=== PATIENT | male | born 1960 | race Caucasian/White ===

== ENCOUNTER 2022-12-29 19:11 | Emergency (ER) | payer SELFPAY ==
[~2022-12-29] VITALS: Ht 180.3 cm; Wt 55.3 kg
--- NOTE | 2022-12-29 19:18 | ED General ---
General Chief Complaint: General Problems/Pain Stated Complaint: BACK PAIN/TARRY STOOL History of Present Illness Date Seen by Provider: Dec 29, 2022 Time Seen by Provider: 19:17 Initial Comments 62-year-old male with PMH of chronic back pain and fused discs, is brought in by EMS for vague and inconsistent complaints. EMS was called for black tarry stools by patient's son, who is not in the ER. Patient denies dark tarry stools. Patient is only complaining of back pain and abdominal discomfort. EMS states that patient appeared confused to them. In the ER patient is alert oriented x3 and is able to answer all questions and commands, but he is not a great historian and is hard of hearing. Patient also states that he is mildly lightheaded, and has only had a cup of coffee and a handful of crackers all day. Patient states that he smokes marijuana. Denies alcohol use, fever or chills, cough, chest pain, palpitations, dysuria, headache, confusion, blurry vision, diarrhea, constipation, nausea and vomiting. Allergies and Home Medications Allergies Coded Allergies: No Known Drug Allergies (Unverified , 12/29/22) Patient Home Medication List Home Medication List Reviewed: Yes Review of Systems Review of Systems Constitutional: malaise EENTM: no symptoms reported Respiratory: no symptoms reported Cardiovascular: no symptoms reported Gastrointestinal: see HPI, loss of appetite Genitourinary: no symptoms reported Musculoskeletal: see HPI, back pain Skin: no symptoms reported Psychiatric/Neurological: No Symptoms Reported Hematologic/Lymphatic: No Symptoms Reported Immunological/Allergic: no symptoms reported Physical Exam Vital Signs Vital Signs - First Documented 12/29/22 19:12 Temp 36.5 Pulse 100 Resp 18 B/P (MAP) 179/98 (125) Pulse Ox 98 O2 Delivery Room Air Capillary Refill : Height, Weight, BMI Height: '" Weight: lbs. oz. kg; BMI Method: General Appearance: No Apparent Distress, WD/WN, Thin HEENT: PERRL/EOMI Neck: Full Range of Motion, Normal Inspection, Non Tender Respiratory: Chest Non Tender, Lungs Clear, Normal Breath Sounds Cardiovascular: Regular Rate, Rhythm, No Edema Gastrointestinal: Normal Bowel Sounds, Distended, Tenderness (Diffuse and generalized) Rectal: Other (Patient is wearing a diaper, stool is not black, early prolapse) Back: Normal Inspection, No CVA Tenderness, Vertebral Tenderness (The lumbosacral area) Extremity: Normal Range of Motion Neurologic/Psychiatric: Alert, Oriented x3, No Motor/Sensory Deficits, Other (Bilateral straight leg test negative, no saddle anesthesia.) Skin: Normal Color, Other (Tenting of skin and dry mucous membranes) Focused Exam Lactate Level 12/29/22 19:25: Lactic Acid Level 0.90 Lactic Acid Level Laboratory Tests Test 12/29/22 19:25 Lactic Acid Level 0.90 MMOL/L (0.50-2.00) Progress/Results/Core Measures Suspected Sepsis SIRS Temperature: Pulse: Respiratory Rate: Laboratory Tests 12/29/22 19:20: White Blood Count 19.4H Blood Pressure / Mean: 12/29/22 19:25: Lactic Acid Level 0.90 Laboratory Tests 12/29/22 19:20: Creatinine 17.33H, Platelet Count 534H, Total Bilirubin 0.3 Results/Orders Lab Results Laboratory Tests Test 12/29/22 19:20 12/29/22 19:25 12/29/22 20:04 Range/Units White Blood Count 19.4 H 4.3-11.0 10^3/uL Red Blood Count 3.40 L 4.30-5.52 10^6/uL Hemoglobin 10.8 L 13.3-17.7 g/dL Hematocrit 30 L 40-54 % Mean Corpuscular Volume 89 80-99 fL Mean Corpuscular Hemoglobin 32 25-34 pg Mean Corpuscular Hemoglobin Concent 36 32-36 g/dL Red Cell Distribution Width 12.9 10.0-14.5 % Platelet Count 534 H 130-400 10^3/uL Mean Platelet Volume 9.8 9.0-12.2 fL Immature Granulocyte % (Auto) 1 % Neutrophils (%) (Auto) 91 H 42-75 % Lymphocytes (%) (Auto) 2 L 12-44 % Monocytes (%) (Auto) 6 0-12 % Eosinophils (%) (Auto) 0 0-10 % Basophils (%) (Auto) 0 0-10 % Neutrophils # (Auto) 17.6 H 1.8-7.8 10^3/uL Lymphocytes # (Auto) 0.4 L 1.0-4.0 10^3/uL Monocytes # (Auto) 1.2 H 0.0-1.0 10^3/uL Eosinophils # (Auto) 0.0 0.0-0.3 10^3/uL Basophils # (Auto) 0.0 0.0-0.1 10^3/uL Immature Granulocyte # (Auto) 0.1 0.0-0.1 10^3/uL Neutrophils % (Manual) 91 % Lymphocytes % (Manual) 4 % Monocytes % (Manual) 5 % Sodium Level 126 L 135-145 MMOL/L Potassium Level 6.7 *H 3.6-5.0 MMOL/L Chloride Level 85 L 98-107 MMOL/L Carbon Dioxide Level 12 L 21-32 MMOL/L Anion Gap 29 H 5-14 MMOL/L Blood Urea Nitrogen 200 *H 7-18 MG/DL Creatinine 17.33 H 0.60-1.30 MG/DL Estimat Glomerular Filtration Rate 3 BUN/Creatinine Ratio 12 Glucose Level 138 H 70-105 MG/DL Calcium Level 9.3 8.5-10.1 MG/DL Corrected Calcium 9.8 8.5-10.1 MG/DL Magnesium Level 2.8 H 1.6-2.4 MG/DL Total Bilirubin 0.3 0.1-1.0 MG/DL Aspartate Amino Transf (AST/SGOT) 5 5-34 U/L Alanine Aminotransferase (ALT/SGPT) < 5 0-55 U/L Alkaline Phosphatase 80 40-136 U/L Troponin I < 0.30 <0.30 NG/ML Pro-B-Type Natriuretic Peptide 521.4 H <125.0 PG/ML Total Protein 7.2 6.4-8.2 GM/DL Albumin 3.4 3.2-4.5 GM/DL Serum Alcohol < 10 <10 MG/DL Lactic Acid Level 0.90 0.50-2.00 MMOL/L Urine Color YELLOW Urine Clarity CLOUDY Urine pH 5.5 5-9 Urine Specific Dyke 1.020 1.016-1.022 Urine Protein NEGATIVE NEGATIVE Urine Glucose (UA) NEGATIVE NEGATIVE Urine Ketones TRACE H NEGATIVE Urine Nitrite NEGATIVE NEGATIVE Urine Bilirubin NEGATIVE NEGATIVE Urine Urobilinogen 0.2 < = 1.0 MG/DL Urine Leukocyte Esterase NEGATIVE NEGATIVE Urine RBC (Auto) 3+ H NEGATIVE Urine RBC 5-10 H /HPF Urine WBC 5-10 H /HPF Urine Crystals NONE /LPF Urine Bacteria TRACE /HPF Urine Casts PRESENT /LPF Urine Coarse Granular Casts 2-5 H /LPF Urine Mucus SMALL H /LPF Urine Other SPERM PRESENT /HPF Urine Culture Indicated YES Urine Opiates Screen NEGATIVE NEGATIVE Urine Oxycodone Screen NEGATIVE NEGATIVE Urine Methadone Screen NEGATIVE NEGATIVE Urine Propoxyphene Screen NEGATIVE NEGATIVE Urine Barbiturates Screen NEGATIVE NEGATIVE Ur Tricyclic Antidepressants Screen NEGATIVE NEGATIVE Urine Phencyclidine Screen NEGATIVE NEGATIVE Urine Amphetamines Screen NEGATIVE NEGATIVE Urine Methamphetamines Screen NEGATIVE NEGATIVE Urine Benzodiazepines Screen NEGATIVE NEGATIVE Urine Cocaine Screen NEGATIVE NEGATIVE Urine Cannabinoids Screen NEGATIVE NEGATIVE My Orders Orders - SHYANNE LOBO MD Alcohol (12/29/22 19:18) Cbc With Automated Diff (12/29/22 19:18) Comprehensive Metabolic Panel (12/29/22 19:18) Drug Screen Stat (Urine) (12/29/22 19:18) Lactic Acid Analyzer (12/29/22 19:18) Magnesium (12/29/22 19:18) Ua Culture If Indicated (12/29/22 19:18) Troponin I Fs (12/29/22 19:18) Occult Blood Stool (12/29/22 19:21) Fecal Occult Bedside (12/29/22 19:21) Manual Differential (12/29/22 17:20) Chest 1 View Ap/Pa Only (12/29/22 19:34) Ct Head Wo (12/29/22 19:34) Ed Iv/Invasive Line Start (12/29/22 19:35) Blood Culture (12/29/22 19:37) Iohexol Injection (Omnipaque 350 Mg/Ml 1 (12/29/22 19:45) Ns (Ivpb) (Sodium Chloride 0.9% Ivpb Bag (12/29/22 19:45) Received Contrast (Hold Metformin- Contr (12/29/22 19:45) Ct Abdomen/Pelvis Wo (12/29/22 19:34) Probnp Fs (12/29/22 19:50) Ekg Tracing (12/29/22 19:51) Ed Iv/Invasive Line Start (12/29/22 19:54) Ns Iv 500 Ml (Sodium Chloride 0.9%) (12/29/22 19:54) Catheter(Urinary) Insert & Ass 03,15 (12/29/22 20:00) Lidocaine 2% (Urojet) (Xylocaine Urojet) (12/29/22 20:00) Drug Screen Stat (Urine) (12/29/22 20:04) Urine Culture (12/29/22 20:04) Ceftriaxone 1 Gm Pre-Mix (Rocephin 1 Gm (12/29/22 20:31) Vital Signs/I&O 12/29/22 19:12 Temp 36.5 Pulse 100 Resp 18 B/P (MAP) 179/98 (125) Pulse Ox 98 O2 Delivery Room Air Capillary Refill : Progress Note : Progress Note 1. INTERMITTENT AMS & DEHYDRATION: - CT HEAD: no acute findings - s. ETOH: negative - UDS negative - UA is positive for ketones, RBCs and WBCs. Urine taken after Owens insertion - NS IVF 500ml given over 2 hrs -Dehydration evidenced by tenting of skin and dry mucous membranes, and ketones in urine 2. NEWLY DIAGNOSED COLON CANCER WITH METS/ BLADDER MASS/ LOWER GI BLEED - CXR: no acute findings, small left pleural effusion - CT ABDOMEN: Severe bilateral hydroureteronephrosis. The dilation extends to the urinary bladder. The bladder wall is thickened with hyper trabeculation. There is high attenuating soft tissue within the urinary bladder consistent with blood clot, possibly with an underlying soft tissue mass. Focal wall thickening of the descending colon is indeterminate but may represent a colon malignancy. Large amount of ascites with omental stranding. Findings may represent underlying peritoneal metastatic disease. Retroperitoneal lymphadenopathy concerning for metastatic disease. Indeterminate liver lesion and indeterminate osseus lesions. - FOB:positive - CBC WBC is elevated to 19.4 with a left shift - BNP is 521 - Protonix bolus 40 iv given in ER - Ceftriaxone 1gm iv STAT 3. SEVERE HYPERKALEMIA/ HYPONATREMIA & CHRONIC RENAL INURY/ FAILURE: BILATERAL HYDROURETERONEPHROSIS - s. creatinine is 17.33 - s. potassium us 6.74 - Troponin normal - Not able to order oral binders on EMR, but nurse able to pull kayexalate 15gm, which was given to pt. - EKG: non-ischemic, no acute changes - ABG: pH is 7.34, HCO3 is 11.3: 1 amp of sodium bicarb given in ER - Pt not aware of his health problems -Creatinine elevation appears to be chronic, and likely cause of potassium being elevated, which is also likely chronic. -Patient will need assessment for dialysis. Will transfer to [facility]. Discussed with ICU consult, Dr Pedraza and accepted for transfer. - Calcium gluconate 1gm iv STAT & Intravenous insulin 5units with 100ml of D50 given - fingerstick checks Diagnostic Imaging Diagonstic Imaging: Xray, CT Plain Films/CT/US/NM/MRI: chest, abdomen, pelvis, head Comments [facility]. [place], [place] NAME: JESSE WEATHERS [facility] REC#: [id number] PT STATUS: REG ER : 1960 PHYSICIAN: SHYANNE LOBO MD ADMIT DATE: 12/29/22/ER FS Draft Date of Exam:12/29/22 CT ABDOMEN/PELVIS WO EXAMINATION: CT abdomen and pelvis without contrast. TECHNIQUE: Multiple contiguous axial images were obtained through the abdomen and pelvis without the use of intravenous contrast. All CT scans use one or more of the following dose optimizing techniques: automated exposure control, MA and/or KvP adjustment based on patient size and exam type or iterative reconstruction. HISTORY: Abdominal distention and back pain. COMPARISON: None available. FINDINGS: Limited views of the lower thorax show small left pleural effusion and overlying atelectasis. There is an indeterminate 1.2 cm right liver lesion. There is no biliary ductal dilation. Gallbladder is normal. Pancreas is normal. Spleen is normal. Adrenal glands are normal. The kidneys are normal. There is severe bilateral hydroureteronephrosis. Bladder wall is thickened with hyper trabeculation. There is soft tissue within the bladder. Prostate gland is enlarged. There is wall thickening of the descending colon. No bowel dilation. There is a large amount of ascites. There is omental stranding. A small hiatal hernia is present. There is retroperitoneal lymphadenopathy. The nodes are difficult to separate from the adjacent vasculature but measure up to 1.3 cm at a minimum. A right external iliac node measures 1.5 cm. Right common iliac lymphadenopathy is present. Aorta is normal in caliber without aneurysm. There is an indeterminate sclerotic lesion in the left ilium. There is a lytic lesion versus Schmorl's node in the superior portion of L1. There is an age-indeterminate compression fracture of T9. IMPRESSION: 1. Severe bilateral hydroureteronephrosis. The dilation extends to the urinary bladder. The bladder wall is thickened with hyper trabeculation. There is high attenuating soft tissue within the urinary bladder consistent with blood clot, possibly with an underlying soft tissue mass. 2. Focal wall thickening of the descending colon is indeterminate but may represent a colon malignancy. 3. Large amount of ascites with omental stranding. Findings may represent underlying peritoneal metastatic disease. 4. Retroperitoneal lymphadenopathy concerning for metastatic disease. 5. Indeterminate liver lesion and indeterminate osseus lesions. Dictated on workstation # [id number] Dict: 12/29/222024 Trans: 12/29/222037 PJE [id number] Interpreted by: DIANE MEEK MD Electronically signed by: [place]ILO [place], [place] NAME: JESSE WEATHERS [facility] REC#: [id number] PT STATUS: REG ER : 1960 PHYSICIAN: SHYANNE LOBO MD ADMIT DATE: 12/29/22/ER FS Draft Date of Exam:12/29/22 CT HEAD WO EXAMINATION: CT head without contrast. TECHNIQUE: Multiple contiguous axial images were obtained through the brain without the use of intravenous contrast. All CT scans use one or more of the following dose optimizing techniques: automated exposure control, MA and/or KvP adjustment based on patient size and exam type or iterative reconstruction. HISTORY: Altered mental status. COMPARISON: None available. FINDINGS: The candelaria-white matter differentiation is normal. No mass effect or midline shift. The ventricles are normal in size and configuration. Basilar cisterns are patent. There is no intra-axial or extra-axial fluid collection. There is no intracranial hemorrhage. The orbits are normal. There are periapical lucencies of the premolars, bilaterally. There is overlying mucosal thickening on the left. Mastoid air cells are clear. No soft tissue abnormality is seen. No osseus lesion or fracture is seen. IMPRESSION: 1. No acute intracranial abnormality. 2. Periapical lucencies of bilateral premolars with overlying mucosal thickening of the left maxillary sinus which may represent odontogenic sinusitis. Dictated on workstation # [id number] Dict: 12/29/222021 Trans: 12/29/222027 PJE [id number] Interpreted by: DIANE MEEK MD Electronically signed by: [facility]. [place], [place] NAME: JESSE WEATHERS [facility] REC#: [id number] PT STATUS: REG ER : 1960 PHYSICIAN: SHYANNE LOBO MD ADMIT DATE: 12/29/22/ER FS Draft Date of Exam:12/29/22 CHEST 1 VIEW AP/PA ONLY EXAMINATION: Chest 1 view. HISTORY: Altered mental status. COMPARISON: None available. FINDINGS: There is a small left effusion. No pneumothorax. No edema or pneumonia. Heart size is normal. IMPRESSION: Small left effusion. Dictated on workstation # [id number] Dict: 12/29/222040 Trans: 12/29/222042 [facility] [id number] Interpreted by: DIANE MEEK MD Electronically signed by: Departure Impression Primary Impression: Hyperkalemia Additional Impressions: Hyponatremia Dehydration AMS (altered mental status) Qualified Codes: R41.82 - Altered mental status, unspecified Lower GI bleed Malignant neoplasm of colon metastatic to intrapelvic lymph node Bladder mass Chronic kidney disease Qualified Codes: N18.9 - Chronic kidney disease, unspecified Disposition: XFER SHT-TRM HOSP Condition: Stable Transfer Transfer Reason: Exceeds level of care Time Spoke to Accepting Phy: 21:30 Transfer Progress Notes Will transfer to [facility]. Discussed with ICU consult, Dr Pedraza and accepted for transfer. Medication recs applied Transfer Facility: [facility] Method of Transfer: EMS Departure-Patient Inst. Referrals: NO,LOCAL PHYSICIAN (PCP/Family) Primary Care Physician SHYANNE LOBO MD Dec 29, 2022 19:18
[2022-12-29 19:25] LABS: BASOPHILS % (AUTO) 0 % (0-10); EOSINOPHILS % (AUTO) 0 % (0-10); HEMATOCRIT 30 % (40-54); HEMOGLOBIN 10.8 g/dL (13.3-17.7); LYMPHOCYTES # (AUTO) 0.4 10^3/uL (1.0-4.0); LYMPHOCYTES % (AUTO) 2 % (12-44); MEAN CORPUSCULAR HEMOGLOBIN 32 pg (25-34); MEAN CORPUSCULAR HGB CONC 36 g/dL (32-36); MEAN CORPUSCULAR VOLUME 89 fL (80-99); MEAN PLATELET VOLUME 9.8 fL (9.0-12.2); MONOCYTES # (AUTO) 1.2 10^3/uL (0.0-1.0); MONOCYTES % (AUTO) 6 % (0-12); NEUTROPHILS # (AUTO) 17.6 10^3/uL (1.8-7.8); NEUTROPHILS % (AUTO) 91 % (42-75); PLATELET COUNT 534 10^3/uL (130-400); WHITE BLOOD COUNT 19.4 10^3/uL (4.3-11.0)
[2022-12-29] MEDS ORDERED: NS IV 1000 ML 1,000 ML IV STA (19:35)
[2022-12-29 19:42] LABS: CARBON DIOXIDE 12 MMOL/L (21-32); CHLORIDE 85 MMOL/L (98-107); CREATININE SERUM 17.33 MG/DL (0.60-1.30); GFR ESTIMATED 3; GLUCOSE 138 MG/DL (70-105); SODIUM 126 MMOL/L (135-145)
[2022-12-29 19:43] LABS: ALBUMIN 3.4 GM/DL (3.2-4.5); ALKALINE PHOSPHATASE 80 U/L (40-136); BILIRUBIN,TOTAL 0.3 MG/DL (0.1-1.0); CALCIUM 9.3 MG/DL (8.5-10.1); MAGNESIUM 2.8 MG/DL (1.6-2.4); TOTAL PROTEIN 7.2 GM/DL (6.4-8.2)
[2022-12-29] MEDS ORDERED: NS 100 ML (IVPB) BAG IV ONE (19:45)
[2022-12-29] MEDS ORDERED: HOLD METFORMIN - RECEIVED CONTRAST 20 ML VIAL IV SCH (19:45)
[2022-12-29] MEDS ORDERED: IOHEXOL 350 MG/ML 100 ML (OMNIPAQUE 350) VIAL IV ONE (19:45)
[2022-12-29 19:46] LABS: POTASSIUM 6.7 MMOL/L (3.6-5.0)
[2022-12-29 19:50] LABS: ALANINE AMINOTRANSFERASE < 5 U/L (0-55); BUN/CREATININE RATIO 12
[2022-12-29 19:51] LABS: LYMPHOCYTES % (MANUAL) 4 %; MONOCYTES % (MANUAL) 5 %; NEUTROPHILS % (MANUAL) 91 %
[2022-12-29] MEDS ORDERED: NS IV 500 ML 500 ML IV STA (19:54)
[2022-12-29] MEDS ORDERED: LIDOCAINE UROJET 2% GEL 10 ML PKG TOP ONE (20:00)
[2022-12-29] MEDS ORDERED: NS IV 500 ML 500 ML ONE (20:02)
[2022-12-29 20:19] LABS: BILIRUBIN,URINE NEGATIVE (NEGATIVE); COLOR,URINE YELLOW; GLUCOSE, URINE (UA) NEGATIVE (NEGATIVE); KETONES,URINE TRACE (NEGATIVE); LEUKOCYTE ESTERASE ,URINE NEGATIVE (NEGATIVE); NITRITE,URINE NEGATIVE (NEGATIVE); PH,URINE 5.5 (5-9); PROTEIN,URINE NEGATIVE (NEGATIVE)
[2022-12-29 20:23] LABS: BACTERIA,URINE TRACE /HPF; CLARITY,URINE CLOUDY
[2022-12-29 20:24] LABS: URINE OTHER SPERM PRESENT /HPF
--- NOTE | 2022-12-29 20:29 | Diagnostic Imaging Report ---
EXAMINATION: CT head without contrast. TECHNIQUE: Multiple contiguous axial images were obtained through the brain without the use of intravenous contrast. All CT scans use one or more of the following dose optimizing techniques: automated exposure control, MA and/or KvP adjustment based on patient size and exam type or iterative reconstruction. HISTORY: Altered mental status. COMPARISON: None available. FINDINGS: The candelaria-white matter differentiation is normal. No mass effect or midline shift. The ventricles are normal in size and configuration. Basilar cisterns are patent. There is no intra-axial or extra-axial fluid collection. There is no intracranial hemorrhage. The orbits are normal. There are periapical lucencies of the premolars, bilaterally. There is overlying mucosal thickening on the left. Mastoid air cells are clear. No soft tissue abnormality is seen. No osseus lesion or fracture is seen. IMPRESSION: 1. No acute intracranial abnormality. 2. Periapical lucencies of bilateral premolars with overlying mucosal thickening of the left maxillary sinus which may represent odontogenic sinusitis. Dictated by: Dictated on workstation # [id number]
[2022-12-29 20:30] LABS: AMPHETAMINE SCREEN, URINE NEGATIVE (NEGATIVE); BARBITURATE SCREEN URINE NEGATIVE (NEGATIVE); BENZODIAZEPINES SCREEN URINE NEGATIVE (NEGATIVE); CANNABINOID SCREEN, URINE NEGATIVE (NEGATIVE); COCAINE SCREEN URINE NEGATIVE (NEGATIVE); METHADONE STAT NEGATIVE (NEGATIVE); OPIATE SCREEN URINE NEGATIVE (NEGATIVE); OXYCODONE STAT NEGATIVE (NEGATIVE); PROPOXYPHENE STAT NEGATIVE (NEGATIVE); TRICYCLIC ANTIDEPRESSANTS SCRE NEGATIVE (NEGATIVE)
[2022-12-29] MEDS ORDERED: cefTRIAXone 1 GM PRE-MIX 50 ML IV STA (20:31)
[2022-12-29] MEDS ORDERED: cefTRIAXone 1 GM PRE-MIX 50 ML IV ONE (20:40)
--- NOTE | 2022-12-29 20:40 | Diagnostic Imaging Report ---
EXAMINATION: CT abdomen and pelvis without contrast. TECHNIQUE: Multiple contiguous axial images were obtained through the abdomen and pelvis without the use of intravenous contrast. All CT scans use one or more of the following dose optimizing techniques: automated exposure control, MA and/or KvP adjustment based on patient size and exam type or iterative reconstruction. HISTORY: Abdominal distention and back pain. COMPARISON: None available. FINDINGS: Limited views of the lower thorax show small left pleural effusion and overlying atelectasis. There is an indeterminate 1.2 cm right liver lesion. There is no biliary ductal dilation. Gallbladder is normal. Pancreas is normal. Spleen is normal. Adrenal glands are normal. The kidneys are normal. There is severe bilateral hydroureteronephrosis. Bladder wall is thickened with hyper trabeculation. There is soft tissue within the bladder. Prostate gland is enlarged. There is wall thickening of the descending colon. No bowel dilation. There is a large amount of ascites. There is omental stranding. A small hiatal hernia is present. There is retroperitoneal lymphadenopathy. The nodes are difficult to separate from the adjacent vasculature but measure up to 1.3 cm at a minimum. A right external iliac node measures 1.5 cm. Right common iliac lymphadenopathy is present. Aorta is normal in caliber without aneurysm. There is an indeterminate sclerotic lesion in the left ilium. There is a lytic lesion versus Schmorl's node in the superior portion of L1. There is an age-indeterminate compression fracture of T9. IMPRESSION: 1. Severe bilateral hydroureteronephrosis. The dilation extends to the urinary bladder. The bladder wall is thickened with hyper trabeculation. There is high attenuating soft tissue within the urinary bladder consistent with blood clot, possibly with an underlying soft tissue mass. 2. Focal wall thickening of the descending colon is indeterminate but may represent a colon malignancy. 3. Large amount of ascites with omental stranding. Findings may represent underlying peritoneal metastatic disease. 4. Retroperitoneal lymphadenopathy concerning for metastatic disease. 5. Indeterminate liver lesion and indeterminate osseus lesions. Dictated by: Dictated on workstation # [id number]
--- NOTE | 2022-12-29 20:44 | Diagnostic Imaging Report ---
EXAMINATION: Chest 1 view. HISTORY: Altered mental status. COMPARISON: None available. FINDINGS: There is a small left effusion. No pneumothorax. No edema or pneumonia. Heart size is normal. IMPRESSION: Small left effusion. Dictated by: Dictated on workstation # [id number]
[2022-12-29] MEDS ORDERED: CALC GLUC 1 GM/100 ML IVPB 100 ML IV ONE (21:15)
[2022-12-29] MEDS ORDERED: DEXTROSE 50% 50 ML (IMS) SYR IV STA (21:26)
[2022-12-29] MEDS ORDERED: inSUlin (REGULAR) HUMAN 1 UNIT/0.01 ML (CHARGE PER UNIT) IV STA (21:26)
[2022-12-29] MEDS ORDERED: SODIUM POLYSTYRENE POWDER 15 GM BOTTLE ONE (21:41)
[2022-12-29] MEDS ORDERED: PANTOPRAZOLE 40 MG (PROTONIX) VIAL IV ONE (21:45)
[2022-12-29 21:50] LABS: INSPIRED O2 2; VENTILATOR NO
[2022-12-29 21:51] LABS: ABG BASE EXCESS -12.4 MMOL/L (-2.5-2.5); ABG OXYGEN SATURATION 98 % (94-100); ABG PCO2 21 MMHG (35-45); ABG PO2 109 MMHG (79-93); ABG TCO2 11.9 MMOL/L (21.0-31.0)
[2022-12-29] MEDS ORDERED: inSUlin (REGULAR) HUMAN 1 UNIT/0.01 ML (CHARGE PER UNIT) ONE (21:52)
[2022-12-29] MEDS ORDERED: DEXTROSE 50% 50 ML (IMS) SYR ONE (21:53)
[2022-12-29 21:54] LABS: ABG PH 7.34 (7.37-7.43); PATIENT TEMP 36.5
[2022-12-29] MEDS ORDERED: PANTOPRAZOLE INJECTION 200 MG in NS (IVPB) 100 ML IV SCH (22:00)
[2022-12-29] MEDS ORDERED: SODIUM BICARB 8.4% 50 MEQ/50 ML (ABBOTT) SYR IV ONE (22:00)
[2022-12-29 23:13] VITALS: BP 167/98
== END 2022-12-29 23:15 | disposition short-term general hospital (02) ==
LOC: ER FS 19:16
DX: E87.5 Hyperkalemia (principal); E87.1 Hypo-osmolality and hyponatremia; E86.0 Dehydration; C18.9 Malignant neoplasm of colon, unspecified; C77.5 Secondary and unspecified malignant neoplasm of intrapelvic lymph nodes; K92.2 Gastrointestinal hemorrhage, unspecified; N32.89 Other specified disorders of bladder; R41.82 Altered mental status, unspecified; N13.2 Hydronephrosis with renal and ureteral calculous obstruction; N18.9 Chronic kidney disease, unspecified; J90 Pleural effusion, not elsewhere classified; Z28.310 Unvaccinated for COVID-19
CPT/HCPCS: 51702; 70450; 71045; 74176; 80053; 80306; 81000; 82274; 82805; 83605; 83735; 83880; 84484; 85007; 87040; 87088; 99291; G0480; 80320; 93005

== ENCOUNTER 2023-02-22 10:28 | Emergency (ER) | payer OTHER ==
--- NOTE | 2023-02-22 10:43 | ED GU-Male ---
General Chief Complaint: - Reproductive Stated Complaint: URINARY PAIN; RT FLANK PAIN History of Present Illness Date Seen by Provider: February 22, 2023 Time Seen by Provider: 10:38 Initial Comments 62-year-old male with some dysuria and right flank pain. Patient had a Owens catheter for 2 months and it was removed yesterday. Reports he feels like he is "just not being right need to go frequently. Has a bit of burning. He has some mild flank pain. He reports that he had kidney failure and asked why he had the catheter in. Allergies and Home Medications Allergies Coded Allergies: No Known Drug Allergies (Unverified , 12/29/22) Patient Home Medication List Home Medication List Reviewed: Yes Review of Systems Review of Systems Constitutional: No chills, No fever Respiratory: No cough Cardiovascular: No chest pain Gastrointestinal: no symptoms reported Genitourinary: see HPI, dysuria, frequency, flank pain Musculoskeletal: no symptoms reported Skin: no symptoms reported Psychiatric/Neurological: No Symptoms Reported Endocrine: No Symptoms Reported Physical Exam Vital Signs Vital Signs - First Documented 02/22/23 10:30 Temp 36.7 Pulse 91 Resp 18 B/P (MAP) 154/86 (108) Pulse Ox 97 O2 Delivery Room Air Capillary Refill : Height, Weight, BMI Height: '" Weight: lbs. oz. kg; 17.00 BMI Method: General Appearance: WD/WN, no apparent distress Cardiovascular: normal peripheral pulses, regular rate, rhythm Respiratory: lungs clear Gastrointestinal: soft, tenderness (Mild suprapubic) Back: CVA tenderness (R) (Mild) Extremities: non-tender, normal inspection, no pedal edema Neurologic/Psychiatric: no motor/sensory deficits, alert, normal mood/affect, oriented x 3 Skin: normal color, warm/dry Progress/Results/Core Measures Suspected Sepsis SIRS Temperature: Pulse: Respiratory Rate: Laboratory Tests 02/22/23 10:44: White Blood Count 11.0 Blood Pressure / Mean: Laboratory Tests 02/22/23 10:44: Creatinine 0.89, Platelet Count 452H Results/Orders Lab Results Laboratory Tests Test 02/22/23 10:32 02/22/23 10:44 Range/Units Urine Color YELLOW Urine Clarity SL CLOUDY Urine pH 7.0 5-9 Urine Specific [place] 1.010 L 1.016-1.022 Urine Protein NEGATIVE NEGATIVE Urine Glucose (UA) NEGATIVE NEGATIVE Urine Ketones NEGATIVE NEGATIVE Urine Nitrite NEGATIVE NEGATIVE Urine Bilirubin NEGATIVE NEGATIVE Urine Urobilinogen 0.2 < = 1.0 MG/DL Urine Leukocyte Esterase 3+ H NEGATIVE Urine RBC (Auto) TRACE-I H NEGATIVE Urine RBC 2-5 H /HPF Urine WBC 2-5 /HPF Urine Squamous Epithelial Cells 2-5 /HPF Urine Crystals NONE /LPF Urine Bacteria MODERATE H /HPF Urine Casts NONE /LPF Urine Mucus SMALL H /LPF Urine Culture Indicated YES White Blood Count 11.0 4.3-11.0 10^3/uL Red Blood Count 3.67 L 4.30-5.52 10^6/uL Hemoglobin 11.6 L 13.3-17.7 g/dL Hematocrit 35 L 40-54 % Mean Corpuscular Volume 96 80-99 fL Mean Corpuscular Hemoglobin 32 25-34 pg Mean Corpuscular Hemoglobin Concent 33 32-36 g/dL Red Cell Distribution Width 13.4 10.0-14.5 % Platelet Count 452 H 130-400 10^3/uL Mean Platelet Volume 9.7 9.0-12.2 fL Immature Granulocyte % (Auto) 0 % Neutrophils (%) (Auto) 73 42-75 % Lymphocytes (%) (Auto) 19 12-44 % Monocytes (%) (Auto) 6 0-12 % Eosinophils (%) (Auto) 1 0-10 % Basophils (%) (Auto) 1 0-10 % Neutrophils # (Auto) 8.0 H 1.8-7.8 10^3/uL Lymphocytes # (Auto) 2.1 1.0-4.0 10^3/uL Monocytes # (Auto) 0.7 0.0-1.0 10^3/uL Eosinophils # (Auto) 0.1 0.0-0.3 10^3/uL Basophils # (Auto) 0.1 0.0-0.1 10^3/uL Immature Granulocyte # (Auto) 0.0 0.0-0.1 10^3/uL Sodium Level 138 135-145 MMOL/L Potassium Level 4.1 3.6-5.0 MMOL/L Chloride Level 103 98-107 MMOL/L Carbon Dioxide Level 21 21-32 MMOL/L Anion Gap 14 5-14 MMOL/L Blood Urea Nitrogen 18 7-18 MG/DL Creatinine 0.89 0.60-1.30 MG/DL Estimat Glomerular Filtration Rate 98 BUN/Creatinine Ratio 20 Glucose Level 104 70-105 MG/DL Calcium Level 9.7 8.5-10.1 MG/DL My Orders Orders - SMITH,ANGELINA L DO Basic Metabolic Panel (02/22/23 10:45) Cbc With Automated Diff (02/22/23 10:45) Ua Culture If Indicated (02/22/23 10:45) Phenazopyridine Tablet (Pyridium Tablet) (02/22/23 10:45) Urine Culture (02/22/23 10:32) Medications Given in ED Current Medications Medications Dose Ordered Sig/Ki Route Start Time Stop Time Status Last Admin Dose Admin Phenazopyridine HCl 100 mg ONCE ONCE PO 02/22/23 10:45 02/22/23 10:47 DC 02/22/23 10:53 100 MG Vital Signs/I&O 02/22/23 10:30 Temp 36.7 Pulse 91 Resp 18 B/P (MAP) 154/86 (108) Pulse Ox 97 O2 Delivery Room Air Capillary Refill : Departure Impression Primary Impression: Urinary tract infection Qualified Codes: N30.01 - Acute cystitis with hematuria Additional Impression: Bladder spasms Disposition: HOME, SELF-CARE Condition: Stable Departure-Patient Inst. Referrals: [facility] (PCP/Family) Primary Care Physician Patient Instructions: Urinary Tract Infection, Adult (DC), Bladder Spasms Add. Discharge Instructions: Please return to the ER if you develop inability to urinate. Drink plenty of fluids. With your primary care provider in 1 to 2 days for recheck of your symptoms All discharge instructions reviewed with patient and/or family. Voiced understanding. Scripts Phenazopyridine HCl (Pyridium) 100 Mg Tablet 100 MG PO Q8H, #6 TAB Prov: SMITH,ANGELINA L DO 02/22/23 Nitrofurantoin Macrocrystal (Nitrofurantoin) 100 Mg Capsule 100 MG PO BID, #10 CAP 0 Refills Prov: SMITH,ANGELINA L DO 02/22/23 SMITH,ANGELINA L DO February 22, 2023 10:43
[2023-02-22] MEDS ORDERED: PHENAZOPYRIDINE 100 MG (PYRIDIUM) TABLET PO ONE (10:45)
[2023-02-22 10:55] LABS: BASOPHILS # (AUTO) 0.1 10^3/uL (0.0-0.1); BASOPHILS % (AUTO) 1 % (0-10); EOSINOPHILS # (AUTO) 0.1 10^3/uL (0.0-0.3); EOSINOPHILS % (AUTO) 1 % (0-10); HEMATOCRIT 35 % (40-54); HEMOGLOBIN 11.6 g/dL (13.3-17.7); LYMPHOCYTES # (AUTO) 2.1 10^3/uL (1.0-4.0); LYMPHOCYTES % (AUTO) 19 % (12-44); MEAN CORPUSCULAR HEMOGLOBIN 32 pg (25-34); MEAN CORPUSCULAR HGB CONC 33 g/dL (32-36); MEAN CORPUSCULAR VOLUME 96 fL (80-99); MEAN PLATELET VOLUME 9.7 fL (9.0-12.2); MONOCYTES # (AUTO) 0.7 10^3/uL (0.0-1.0); MONOCYTES % (AUTO) 6 % (0-12); NEUTROPHILS % (AUTO) 73 % (42-75); PLATELET COUNT 452 10^3/uL (130-400)
[2023-02-22 10:56] LABS: BILIRUBIN,URINE NEGATIVE (NEGATIVE); CLARITY,URINE SL CLOUDY; COLOR,URINE YELLOW; GLUCOSE, URINE (UA) NEGATIVE (NEGATIVE); KETONES,URINE NEGATIVE (NEGATIVE); LEUKOCYTE ESTERASE ,URINE 3+ (NEGATIVE); NITRITE,URINE NEGATIVE (NEGATIVE); PROTEIN,URINE NEGATIVE (NEGATIVE)
[2023-02-22 11:08] LABS: BACTERIA,URINE MODERATE /HPF
[2023-02-22 11:18] LABS: POTASSIUM 4.1 MMOL/L (3.6-5.0)
[2023-02-22 11:19] LABS: CALCIUM 9.7 MG/DL (8.5-10.1); CREATININE SERUM 0.89 MG/DL (0.60-1.30)
[2023-02-22] MEDS ORDERED: PHEN-639 PO (11:29)
[2023-02-22] MEDS ORDERED: NITR100C PO (11:29)
[2023-02-22 11:31] VITALS: BP 126/75
== END 2023-02-22 11:30 | disposition home or self-care (01) ==
LOC: EDUNIT# 10:28 → ER FS 10:30
DX: N39.0 Urinary tract infection, site not specified (principal); N32.89 Other specified disorders of bladder
CPT/HCPCS: 36415; 80048; 81000; 85025; 87077; 87088

== ENCOUNTER 2023-04-28 21:35 | Emergency (ER) | payer MEDICAID, OTHER ==
[~2023-04-28] VITALS: Ht 180.3 cm; Wt 47.1 kg
[~2023-04-28 21:35] MED LIST: NITR100C PO; PHEN-639 PO
[2023-04-28] MEDS ORDERED: NS IV 1000 ML 1,000 ML IV STA (21:47)
[2023-04-28] MEDS ORDERED: ONDANSETRON 4 MG/2 ML (SDV) Z0FRAN IVP STA (21:47)
[2023-04-28] MEDS ORDERED: KETOROLAC 15 MG/ML VIAL IVP STA (21:47)
[2023-04-28] MEDS ORDERED: fentaNYL INJ 100 MCG/2 ML AMP IVP STA (21:57)
--- NOTE | 2023-04-28 22:05 | ED General ---
General Chief Complaint: General Problems/Pain Stated Complaint: GENERAL PAIN Source of Information: Patient History of Present Illness Date Seen by Provider: Apr 28, 2023 Time Seen by Provider: 21:44 Initial Comments 63-year-old male presenting with complaints of severe right flank pain. He states that he had laid down for a nap and then when he woke up he was having severe pain. He has nausea but has not vomited. He reports having a history of kidney stones as well as problems with his prostate. He had a recent prostate biopsy and is waiting to hear back from the urologist out of [facility] about those results. He denies any recent fall or injury. He has chronic low back pain that is causing him additional pain as well. He denies any fever, chills, pain with urination, chest pain, cough, change in his bowels. Timing/Duration: 4-6 Hours Severity: Severe Modifying Factors: worse with Movement Associated Systoms: No Chest Pain, No Cough, No Diaphoresis, No Fever/Chills, No Headaches, No Loss of Appetite; Nausea/Vomiting (nausea but no emesis); No Seizure, No Shortness of Air, No Syncope; Weakness Allergies and Home Medications Allergies Coded Allergies: No Known Drug Allergies (Unverified , 12/29/22) Patient Home Medication List Home Medication List Reviewed: Yes Hydrocodone/Acetaminophen (Hydrocodone-Acetamin 5-325 mg) 5 Mg-325 Mg Tablet, 1 TAB PO Q4H PRN for PAIN SEVERE Prescribed by: ANGELICA SARMIENTO on 04/28/23 5817 Nitrofurantoin Macrocrystal (Nitrofurantoin) 100 Mg Capsule, 100 MG PO BID Prescribed by: ANGELINA SMITH on 02/22/23 1129 Phenazopyridine HCl (Pyridium) 100 Mg Tablet, 100 MG PO Q8H Prescribed by: ANGELINA SMITH on 02/22/23 1129 Review of Systems Review of Systems Constitutional: No chills, No fever; weakness EENTM: no symptoms reported Respiratory: no symptoms reported Cardiovascular: no symptoms reported Gastrointestinal: see HPI Genitourinary: see HPI Musculoskeletal: see HPI Skin: No rash Psychiatric/Neurological: See HPI, Weakness (general weakness) Past [id number]-Eewubn Hx Past Medical History Surgery/Hospitalization HX: Reports recent admission for kidney failure. BPH, Chronic back pain Physical Exam Vital Signs Vital Signs - First Documented 04/28/23 21:40 Temp 36.1 Pulse 100 Resp 18 B/P (MAP) 142/92 (109) Pulse Ox 100 O2 Delivery Room Air Capillary Refill : Height, Weight, BMI Height: '" Weight: lbs. oz. kg; 17.00 BMI Method: General Appearance: Chronically ill, Mild Distress HEENT: PERRL/EOMI, Pharynx Normal Respiratory: Chest Non Tender, Lungs Clear, Normal Breath Sounds, No Accessory Muscle Use, No Respiratory Distress Cardiovascular: Regular Rate, Rhythm, Normal Peripheral Pulses Gastrointestinal: Normal Bowel Sounds, No Pulsatile Mass, Soft, Tenderness (right CVA and flank) Rectal: Deferred Back: CVA Tenderness (R) Extremity: Normal Capillary Refill, No Pedal Edema Neurologic/Psychiatric: Alert, Oriented x3 Skin: Warm/Dry, Pallor Progress/Results/Core Measures Suspected Sepsis SIRS Temperature: Pulse: Respiratory Rate: Laboratory Tests 04/28/23 21:55: White Blood Count 6.8 Blood Pressure / Mean: Laboratory Tests 04/28/23 21:55: Creatinine 0.98, Platelet Count 335, Total Bilirubin 0.2 Results/Orders Lab Results Laboratory Tests Test 04/28/23 21:55 04/28/23 22:15 Range/Units White Blood Count 6.8 4.3-11.0 10^3/uL Red Blood Count 3.98 L 4.30-5.52 10^6/uL Hemoglobin 11.8 L 13.3-17.7 g/dL Hematocrit 35 L 40-54 % Mean Corpuscular Volume 88 80-99 fL Mean Corpuscular Hemoglobin 30 25-34 pg Mean Corpuscular Hemoglobin Concent 34 32-36 g/dL Red Cell Distribution Width 13.8 10.0-14.5 % Platelet Count 335 130-400 10^3/uL Mean Platelet Volume 9.4 9.0-12.2 fL Immature Granulocyte % (Auto) 0 % Neutrophils (%) (Auto) 58 42-75 % Lymphocytes (%) (Auto) 31 12-44 % Monocytes (%) (Auto) 8 0-12 % Eosinophils (%) (Auto) 2 0-10 % Basophils (%) (Auto) 1 0-10 % Neutrophils # (Auto) 3.9 1.8-7.8 10^3/uL Lymphocytes # (Auto) 2.1 1.0-4.0 10^3/uL Monocytes # (Auto) 0.6 0.0-1.0 10^3/uL Eosinophils # (Auto) 0.2 0.0-0.3 10^3/uL Basophils # (Auto) 0.1 0.0-0.1 10^3/uL Immature Granulocyte # (Auto) 0.0 0.0-0.1 10^3/uL Sodium Level 133 L 135-145 MMOL/L Potassium Level 3.6 3.6-5.0 MMOL/L Chloride Level 99 98-107 MMOL/L Carbon Dioxide Level 22 21-32 MMOL/L Anion Gap 12 5-14 MMOL/L Blood Urea Nitrogen 17 7-18 MG/DL Creatinine 0.98 0.60-1.30 MG/DL Estimat Glomerular Filtration Rate 88 BUN/Creatinine Ratio 17 Glucose Level 92 70-105 MG/DL Calcium Level 9.3 8.5-10.1 MG/DL Corrected Calcium 9.2 8.5-10.1 MG/DL Total Bilirubin 0.2 0.1-1.0 MG/DL Aspartate Amino Transf (AST/SGOT) 13 5-34 U/L Alanine Aminotransferase (ALT/SGPT) < 5 0-55 U/L Alkaline Phosphatase 146 H 40-136 U/L Total Protein 7.1 6.4-8.2 GM/DL Albumin 4.1 3.2-4.5 GM/DL Lipase 29 8-78 U/L Urine Color YELLOW Urine Clarity CLEAR Urine pH 6.5 5-9 Urine Specific [place] <=1.005 1.016-1.022 Urine Protein NEGATIVE NEGATIVE Urine Glucose (UA) NEGATIVE NEGATIVE Urine Ketones NEGATIVE NEGATIVE Urine Nitrite NEGATIVE NEGATIVE Urine Bilirubin NEGATIVE NEGATIVE Urine Urobilinogen 0.2 < = 1.0 MG/DL Urine Leukocyte Esterase NEGATIVE NEGATIVE Urine RBC (Auto) TRACE-I H NEGATIVE Urine RBC 2-5 H /HPF Urine WBC 10-25 H /HPF Urine Squamous Epithelial Cells 2-5 /HPF Urine Crystals NONE /LPF Urine Bacteria TRACE /HPF Urine Casts NONE /LPF Urine Mucus SMALL H /LPF Urine Culture Indicated YES Urine Opiates Screen NEGATIVE NEGATIVE Urine Oxycodone Screen NEGATIVE NEGATIVE Urine Methadone Screen NEGATIVE NEGATIVE Urine Propoxyphene Screen NEGATIVE NEGATIVE Urine Barbiturates Screen NEGATIVE NEGATIVE Ur Tricyclic Antidepressants Screen NEGATIVE NEGATIVE Urine Phencyclidine Screen NEGATIVE NEGATIVE Urine Amphetamines Screen NEGATIVE NEGATIVE Urine Methamphetamines Screen NEGATIVE NEGATIVE Urine Benzodiazepines Screen NEGATIVE NEGATIVE Urine Cocaine Screen NEGATIVE NEGATIVE Urine Cannabinoids Screen POSITIVE H NEGATIVE My Orders Orders - ANGELICA SARMIENTO MD Comprehensive Metabolic Panel (04/28/23 21:47) Lipase (04/28/23 21:47) Ua Culture If Indicated (04/28/23 21:47) Ed Iv/Invasive Line Start (04/28/23 21:47) Cbc With Automated Diff (04/28/23 21:47) Ct Abdomen/Pelvis Wo (04/28/23 21:47) Ns Iv 1000 Ml (Sodium Chloride 0.9%) (04/28/23 21:47) Ketorolac Injection (Toradol Injection) (04/28/23 21:47) Ondansetron Injection (Zofran Injectio (04/28/23 21:47) Fentanyl Inj (Sublimaze Injection) (04/28/23 21:57) Drug Screen Stat (Urine) (04/28/23 21:58) Urine Culture (04/28/23 22:15) Hydrocodone/Apap 5/325 Tablet (Lortab 5 (04/28/23 23:33) Vital Signs/I&O 04/28/23 04/28/23 04/28/23 04/28/23 21:40 22:24 23:45 23:48 Temp 36.1 36.1 36.1 36.1 Pulse 100 95 Resp 18 18 B/P (MAP) 142/92 (109) 135/88 Pulse Ox 100 100 O2 Delivery Room Air Room Air 04/29/23 00:00 Intake Total 1000 ml Balance 1000 ml Capillary Refill : Progress Note #1: Progress Note Potential diagnosis of renal colic, pyelonephritis, cystitis, diverticulitis, colitis, bladder outlet obstruction, acute on chronic renal failure. Obtain peripheral IV access and send labs for complete blood count, comprehensive metabolic profile, lipase, urinalysis, magnesium. Obtain CT scan of the abdomen and pelvis without IV contrast to look for pathology to be causing his symptoms and pain. Administer normal saline 1 L IV fluid bolus for hydration, Toradol 15 mg IV for pain, Zofran 4 mg IV for nausea. We will add on fentanyl 50 mcg for additional pain control. Progress Note #2: Time: 22:30 Progress Note Patient reported that his pain was slightly improved with the Toradol and so he was given a dose of fentanyl. His complete blood count did not show any acute abnormalities his white blood cell count was normal at 6.8 and he had some anemia with a hemoglobin of 11.8. His comprehensive metabolic profile did not show acute significant electrolyte imbalance. His sodium was 133 with a potassium of 3.6, BUN of 17, creatinine of 0.98 and a glucose of 92. He had a normal lipase of 22. He had mild elevation of his alkaline phosphatase to 146. His urinalysis had shown that he was hydrated with a specific gravity less than 1.005 but he had trace blood and 10-25 white blood cells. There were no nitrites or leukocyte esterase but a culture was reflexed. On my personal interpretation and review of his CT scan of the abdomen and pelvis without IV contrast he does show distended bladder with irregular appearance of the bladder wall similar to his prior CT scan. I did not appreciate any definite kidney stone to cause a blockage or renal colic. Awaiting radiology over read from stat rad. Progress Note #3: Time: 23:14 Progress Note I reviewed the radiologist report on the CT scan of the abdomen and pelvis with IV contrast. Radiologist had reported that he had what appeared to be a pathologic fracture of the L1 vertebral body with mildly displaced right L1 transverse process fracture. He had lytic and sclerotic bone lesions in the spine and pelvis suspicious for metastatic disease. He continued to have moderate bilateral hydroureteronephrosis possibly related to a bladder outlet obstruction that appeared mildly improved compared to the CT of his abdomen and pelvis from December 29, 2022. I reviewed the findings with the patient and he denied having been told that he had cancer when he was been seen at [facility]. He states that he just got insurance but it assigned him to a provider at [facility]. He has an appointment on Sunday to follow-up about Prostate biopsy. He reports having some hydrocodone/acetaminophen pills at home left over from December when he was discharged from [facility]. Will prescribe additional hydrocodone/acetaminophen 5/325 mg pills for him to have available for severe pain. Encouraged to follow- up with [facility] and/or [facility] about the pain control for his compression fracture of the spine and possibly see oncology since there was concern for possible metastatic cancer. That this pain was doing better he was given a hydrocodone pill by mouth here and information for discharge. Prescription for hydrocodone/acetaminophen 5/325 mg pills 1 every 4 hours as needed for severe pain #30 or 5-day supply was prescribed and he was given a 4 pack of hydrocodone 5/325 mg pills to help for the next 24 hours until he was able to get to the pharmacy. Diagnostic Imaging Diagonstic Imaging: CT Plain Films/CT/US/NM/MRI: abdomen, pelvis Comments CT scan of the abdomen and pelvis with IV contrast impression: 1. Pathologic fracture of the L1 vertebral body extending into a mildly displaced right L1 transverse process fracture. Lytic and sclerotic bone lesions in the spine and pelvis are suspicious for metastatic disease. 2. Moderate bilateral hydroureteronephrosis, possibly related to bladder outlet obstruction. Mildly improved compared to CT abdomen December 29, 2022. No evidence of obstructing stones. Distended urinary bladder with diffuse bladder wall thickening, consider correlation with direct visualization. Enlarged prostate. 3. Findings suspicious for proctocolitis of the rectum and sigmoid colon underlying mass is not excluded. Read by radiologist Dr.Samih Gulshan MD at [phone] and faxed at [phone] Reviewed: Reviewed by Me (I reviewed the radiologist report at [id number]) Departure Impression Primary Impression: Lumbar compression fracture Qualified Codes: S32.010A - Wedge compression fracture of first lumbar vertebra, initial encounter for closed fracture Additional Impressions: Acute right flank pain Acute exacerbation of chronic low back pain Enlarged prostate Disposition: 01 HOME, SELF-CARE Condition: Stable Departure-Patient Inst. Decision time for Depature: 23:35 Referrals: [facility] (PCP/Family) Primary Care Physician Patient Instructions: Vertebral Compression Fracture ED, Flank Pain ED, Opioids for Short-Term Treatment of Pain ED Add. Discharge Instructions: Your CT scan had not shown any kidney stones but it did show a compression fracture of your first lumbar vertebrae. This was new since your last CT scan in December. This can be causing the pain and it was concerning for possible area of cancer that had spread to the lumbar vertebrae. You will need to follow-up with the clinic and they likely will need to get you in with a quality control specialist as well as a oncologist to further work this up and treat it. While taking the narcotic pain medicine it can cause constipation so consider t aking MiraLAX or a laxative to help keep from getting constipated. Just taking a stool softener would not be enough to overcome the slowing effect of the narcotic but a stimulant laxative such as MiraLAX could help to keep your bowels soft and regular. Make sure you are drinking plenty of water and staying well-hydrated as well. All discharge instructions reviewed with patient and/or family. Voiced understanding. Scripts Hydrocodone/Acetaminophen (Hydrocodone-Acetamin 5-325 mg) 5 Mg-325 Mg Tablet 1 TAB PO Q4H PRN for PAIN SEVERE for 5 Days, #30 TAB 0 Refills Prov: ANGELICA SARMIENTO MD 04/28/23 ANGELICA SARMIENTO MD Apr 28, 2023 22:05
[2023-04-28 22:08] LABS: BASOPHILS # (AUTO) 0.1 10^3/uL (0.0-0.1); BASOPHILS % (AUTO) 1 % (0-10); EOSINOPHILS # (AUTO) 0.2 10^3/uL (0.0-0.3); EOSINOPHILS % (AUTO) 2 % (0-10); HEMATOCRIT 35 % (40-54); HEMOGLOBIN 11.8 g/dL (13.3-17.7); LYMPHOCYTES # (AUTO) 2.1 10^3/uL (1.0-4.0); LYMPHOCYTES % (AUTO) 31 % (12-44); MEAN CORPUSCULAR HEMOGLOBIN 30 pg (25-34); MEAN CORPUSCULAR HGB CONC 34 g/dL (32-36); MEAN CORPUSCULAR VOLUME 88 fL (80-99); MEAN PLATELET VOLUME 9.4 fL (9.0-12.2); MONOCYTES # (AUTO) 0.6 10^3/uL (0.0-1.0); MONOCYTES % (AUTO) 8 % (0-12); NEUTROPHILS # (AUTO) 3.9 10^3/uL (1.8-7.8); NEUTROPHILS % (AUTO) 58 % (42-75); PLATELET COUNT 335 10^3/uL (130-400); WHITE BLOOD COUNT 6.8 10^3/uL (4.3-11.0)
[2023-04-28 22:20] LABS: BILIRUBIN,URINE NEGATIVE (NEGATIVE); CLARITY,URINE CLEAR; COLOR,URINE YELLOW; GLUCOSE, URINE (UA) NEGATIVE (NEGATIVE); KETONES,URINE NEGATIVE (NEGATIVE); LEUKOCYTE ESTERASE ,URINE NEGATIVE (NEGATIVE); NITRITE,URINE NEGATIVE (NEGATIVE); PH,URINE 6.5 (5-9); PROTEIN,URINE NEGATIVE (NEGATIVE)
[2023-04-28 22:25] LABS: BACTERIA,URINE TRACE /HPF
[2023-04-28 22:33] LABS: ALKALINE PHOSPHATASE 146 U/L (40-136); BILIRUBIN,TOTAL 0.2 MG/DL (0.1-1.0); BUN/CREATININE RATIO 17; CALCIUM 9.3 MG/DL (8.5-10.1); CARBON DIOXIDE 22 MMOL/L (21-32); CHLORIDE 99 MMOL/L (98-107); CREATININE SERUM 0.98 MG/DL (0.60-1.30); GFR ESTIMATED 88; GLUCOSE 92 MG/DL (70-105); POTASSIUM 3.6 MMOL/L (3.6-5.0); SODIUM 133 MMOL/L (135-145); TOTAL PROTEIN 7.1 GM/DL (6.4-8.2)
[2023-04-28 22:33] LABS: AMPHETAMINE SCREEN, URINE NEGATIVE (NEGATIVE); BARBITURATE SCREEN URINE NEGATIVE (NEGATIVE); BENZODIAZEPINES SCREEN URINE NEGATIVE (NEGATIVE); CANNABINOID SCREEN, URINE POSITIVE (NEGATIVE); COCAINE SCREEN URINE NEGATIVE (NEGATIVE); METHADONE STAT NEGATIVE (NEGATIVE); OPIATE SCREEN URINE NEGATIVE (NEGATIVE); OXYCODONE STAT NEGATIVE (NEGATIVE); PROPOXYPHENE STAT NEGATIVE (NEGATIVE); TRICYCLIC ANTIDEPRESSANTS SCRE NEGATIVE (NEGATIVE)
[2023-04-28 22:34] LABS: ALANINE AMINOTRANSFERASE < 5 U/L (0-55); ALBUMIN 4.1 GM/DL (3.2-4.5); LIPASE 29 U/L (8-78)
[2023-04-28] MEDS ORDERED: HYDROcodone/APAP 5 MG/325 MG (LORTAB) TAB PO STA (23:33)
[2023-04-28] MEDS ORDERED: ACHD5005 PO (23:35)
[2023-04-28 23:48] VITALS: BP 135/88
--- NOTE | 2023-04-29 08:40 | Diagnostic Imaging Report ---
PROCEDURE: CT abdomen and pelvis without contrast. TECHNIQUE: Multiple contiguous axial images were obtained through the abdomen and pelvis without the use of intravenous contrast. Auto Exposure Controls were utilized during the CT exam to meet ALARA standards for radiation dose reduction. INDICATION: Right-sided flank pain. COMPARISON: 12/29/2022. FINDINGS: The heart is unremarkable. The lung bases are clear. Bilateral hydroureteronephrosis is seen with moderately distended urinary bladder. There is generalized bladder wall thickening. The prostate is enlarged and heterogeneous. No focal renal lesions are identified. No obstructing calculi are seen. Small cyst is seen in the right hepatic lobe. The gallbladder is nondistended. The spleen, pancreas, and adrenal glands have a normal noncontrast CT appearance. There is no pathologically enlarged mesenteric or retroperitoneal adenopathy. The bowel loops are nondilated. There is bowel wall thickening of the rectosigmoid colon. There is no free fluid or free air. There is height loss and sclerosis involving the L1 vertebral body. Additional sclerotic lesions are seen in the L2 and L3 vertebral bodies. Sclerotic lesions are also seen in the sacrum left of midline and left ilium. There is calcified aortic and iliac atherosclerotic plaque. There is no free air, loculated collection, or adenopathy in the pelvis. IMPRESSION: 1. Persistent bilateral hydroureteronephrosis with moderately distended urinary bladder. Findings are most consistent with chronic urinary outlet obstruction. Overall the appearance has improved since the prior exam. No evidence of obstructing calculi. 2. Sclerotic lesions in the L1-L3 vertebral bodies, sacrum, and left ilium. Findings have progressed since the prior exam and are highly suspicious for metastatic disease. 3. Bilateral thickening involving the rectosigmoid colon, which can be seen with proctitis. No bowel obstruction. No free fluid. Agree with overnight report. Dictated by: Dictated on workstation # [id number]
== END 2023-04-28 23:48 | disposition home or self-care (01) ==
LOC: EDUNIT# 21:35 → ER FS 21:37
DX: M48.56XA Collapsed vertebra, not elsewhere classified, lumbar region, initial encounter for fracture (principal); G89.29 Other chronic pain; N40.0 Benign prostatic hyperplasia without lower urinary tract symptoms; D64.9 Anemia, unspecified; Z28.310 Unvaccinated for COVID-19
CPT/HCPCS: 36415; 74176; 80053; 80306; 81000; 83690; 85025; 87088

== ENCOUNTER 2023-06-22 14:51 | Emergency (ER) | payer MEDICAID ==
[~2023-06-22] VITALS: Ht 180.3 cm; Wt 47.1 kg
[~2023-06-22 14:51] MED LIST changes: +ACHD5005 PO
--- NOTE | 2023-06-22 14:58 | ED General ---
General Chief Complaint: General Problems/Pain Stated Complaint: WEAKNESS History of Present Illness Date Seen by Provider: Jun 22, 2023 Time Seen by Provider: 14:58 Initial Comments 63-year-old male presents with some generalized weakness. Patient is a cancer patient who presents because he just has weakness. He has been recently on chemo. He states that he just cannot live at home no more and is gotten more weak than normal. That he is wanting to go somewhere. Patient does not have any acute complaints such as fevers chills nausea vomiting, etc. Patient here is because he is not sure what to do. He is not sure he wants to continue his chemo or not. Allergies and Home Medications Allergies Coded Allergies: No Known Drug Allergies (Unverified , 12/29/22) Patient Home Medication List Home Medication List Reviewed: Yes Hydrocodone/Acetaminophen (Hydrocodone-Acetamin 5-325 mg) 5 Mg-325 Mg Tablet, 1 TAB PO Q4H PRN for PAIN SEVERE Prescribed by: ANGELICA SARMIENTO on 04/28/23 2337 Nitrofurantoin Macrocrystal (Nitrofurantoin) 100 Mg Capsule, 100 MG PO BID Prescribed by: ANGELINA SMITH on 02/22/23 1129 Phenazopyridine HCl (Pyridium) 100 Mg Tablet, 100 MG PO Q8H Prescribed by: ANGELINA SMITH on 02/22/23 1129 Review of Systems Review of Systems Constitutional: see HPI, malaise, weakness EENTM: no symptoms reported Respiratory: no symptoms reported Cardiovascular: no symptoms reported Genitourinary: no symptoms reported Musculoskeletal: see HPI Skin: no symptoms reported Psychiatric/Neurological: No Symptoms Reported Hematologic/Lymphatic: No Symptoms Reported Past [id number]-[id number] Hx Immunizations Up To Date First/Initial COVID19 Vaccinat: Unvaccinated Past Medical History Surgery/Hospitalization HX: Reports recent admission for kidney failure. BPH, Chronic back pain Physical Exam Vital Signs Vital Signs - First Documented 06/22/23 14:51 Temp 36.2 Pulse 110 Resp 18 B/P (MAP) 90/69 (76) Pulse Ox 96 O2 Delivery Room Air Capillary Refill : Height, Weight, BMI Height: '" Weight: lbs. oz. kg; 14.00 BMI Method: General Appearance: Thin, Other (Frail, chronically ill) HEENT: PERRL/EOMI Respiratory: Lungs Clear, Normal Breath Sounds Cardiovascular: Regular Rate, Rhythm Neurologic/Psychiatric: Alert, Oriented x3 Progress/Results/Core Measures Suspected Sepsis SIRS Temperature: Pulse: Respiratory Rate: Laboratory Tests 06/22/23 15:30: White Blood Count 4.3 Blood Pressure / Mean: Laboratory Tests 06/22/23 15:30: Creatinine 0.80, Platelet Count 183, Total Bilirubin 0.2 Results/Orders Lab Results Laboratory Tests Test 06/22/23 15:30 06/22/23 16:30 Range/Units White Blood Count 4.3 4.3-11.0 10^3/uL Red Blood Count 3.40 L 4.30-5.52 10^6/uL Hemoglobin 10.5 L 13.3-17.7 g/dL Hematocrit 31 L 40-54 % Mean Corpuscular Volume 92 80-99 fL Mean Corpuscular Hemoglobin 31 25-34 pg Mean Corpuscular Hemoglobin Concent 34 32-36 g/dL Red Cell Distribution Width 16.3 H 10.0-14.5 % Platelet Count 183 130-400 10^3/uL Mean Platelet Volume 9.3 9.0-12.2 fL Immature Granulocyte % (Auto) 1 % Neutrophils (%) (Auto) 70 42-75 % Lymphocytes (%) (Auto) 6 L 12-44 % Monocytes (%) (Auto) 16 H 0-12 % Eosinophils (%) (Auto) 7 0-10 % Basophils (%) (Auto) 1 0-10 % Neutrophils # (Auto) 3.0 1.8-7.8 10^3/uL Lymphocytes # (Auto) 0.3 L 1.0-4.0 10^3/uL Monocytes # (Auto) 0.7 0.0-1.0 10^3/uL Eosinophils # (Auto) 0.3 0.0-0.3 10^3/uL Basophils # (Auto) 0.0 0.0-0.1 10^3/uL Immature Granulocyte # (Auto) 0.0 0.0-0.1 10^3/uL Sodium Level 134 L 135-145 MMOL/L Potassium Level 4.0 3.6-5.0 MMOL/L Chloride Level 101 98-107 MMOL/L Carbon Dioxide Level 20 L 21-32 MMOL/L Anion Gap 13 5-14 MMOL/L Blood Urea Nitrogen 15 7-18 MG/DL Creatinine 0.80 0.60-1.30 MG/DL Estimat Glomerular Filtration Rate 101 BUN/Creatinine Ratio 19 Glucose Level 96 70-105 MG/DL Calcium Level 9.0 8.5-10.1 MG/DL Corrected Calcium 9.4 8.5-10.1 MG/DL Total Bilirubin 0.2 0.1-1.0 MG/DL Aspartate Amino Transf (AST/SGOT) 12 5-34 U/L Alanine Aminotransferase (ALT/SGPT) 6 0-55 U/L Alkaline Phosphatase 103 40-136 U/L Total Protein 6.0 L 6.4-8.2 GM/DL Albumin 3.5 3.2-4.5 GM/DL Urine Color BROWN H Urine Clarity TURBID Urine pH 6.0 5-9 Urine Specific Steger >=1.030 1.016-1.022 Urine Protein 2+ H NEGATIVE Urine Glucose (UA) NEGATIVE NEGATIVE Urine Ketones NEGATIVE NEGATIVE Urine Nitrite POSITIVE H NEGATIVE Urine Bilirubin 1+ H NEGATIVE Urine Urobilinogen 0.2 < = 1.0 MG/DL Urine Leukocyte Esterase NEGATIVE NEGATIVE Urine RBC (Auto) 3+ H NEGATIVE Urine RBC TNTC H /HPF Urine WBC /HPF Urine Crystals NONE /LPF Urine Bacteria /HPF Urine Casts NONE /LPF Urine Mucus NEGATIVE /LPF Urine Culture Indicated YES My Orders Orders - ANGELINA SMITH DO Cbc With Automated Diff (06/22/23 15:20) Comprehensive Metabolic Panel (06/22/23 15:20) Ua Culture If Indicated (06/22/23 15:20) Urine Culture (06/22/23 16:30) Vital Signs/I&O 06/22/23 06/22/23 14:51 17:27 Temp 36.2 Pulse 110 97 Resp 18 18 B/P (MAP) 90/69 (76) 123/79 Pulse Ox 96 96 O2 Delivery Room Air Room Air Capillary Refill : Progress Note : Progress Note Patient with general debility due to chemo and his cancer diagnosis. He has had progressive worsening. Patient labs were ordered reviewed and shows some hematuria but no other acute findings. This may be due to him recently been started on Eliquis due to the known blood clot in his leg. Patient to be admitted to [facility] with accepting doctor LOPEZ for chemo-induced weakness, debility. They will evaluate him with PT OT to determine if he can have short-term rehab versus long-term placement. Patient was stable and transferred via EMS. Departure Impression Primary Impression: Physical debility Additional Impression: Chemotherapy declined Disposition: 02 XFER SHT-TRM HOSP Condition: Stable Transfer Transfer Reason: Patient preference Time Spoke to Accepting Phy: 16:55 Transfer Progress Notes pt accepted to [facility], Dr Lopez Transfer Facility: [facility] Method of Transfer: EMS Departure-Patient Inst. Referrals: [facility] (PCP/Family) Primary Care Physician ANGELINA SMITH DO Jun 22, 2023 14:58
[2023-06-22 15:33] LABS: BASOPHILS % (AUTO) 1 % (0-10); EOSINOPHILS # (AUTO) 0.3 10^3/uL (0.0-0.3); EOSINOPHILS % (AUTO) 7 % (0-10); HEMATOCRIT 31 % (40-54); HEMOGLOBIN 10.5 g/dL (13.3-17.7); LYMPHOCYTES # (AUTO) 0.3 10^3/uL (1.0-4.0); LYMPHOCYTES % (AUTO) 6 % (12-44); MEAN CORPUSCULAR HEMOGLOBIN 31 pg (25-34); MEAN CORPUSCULAR HGB CONC 34 g/dL (32-36); MEAN CORPUSCULAR VOLUME 92 fL (80-99); MEAN PLATELET VOLUME 9.3 fL (9.0-12.2); MONOCYTES # (AUTO) 0.7 10^3/uL (0.0-1.0); MONOCYTES % (AUTO) 16 % (0-12); NEUTROPHILS % (AUTO) 70 % (42-75); PLATELET COUNT 183 10^3/uL (130-400); WHITE BLOOD COUNT 4.3 10^3/uL (4.3-11.0)
[2023-06-22 15:54] LABS: BILIRUBIN,TOTAL 0.2 MG/DL (0.1-1.0); CREATININE SERUM 0.8 MG/DL (0.60-1.30)
[2023-06-22 15:55] LABS: ALBUMIN 3.5 GM/DL (3.2-4.5)
[2023-06-22 16:34] LABS: GLUCOSE, URINE (UA) NEGATIVE (NEGATIVE); KETONES,URINE NEGATIVE (NEGATIVE); LEUKOCYTE ESTERASE ,URINE NEGATIVE (NEGATIVE); NITRITE,URINE POSITIVE (NEGATIVE); PROTEIN,URINE 2+ (NEGATIVE)
[2023-06-22 16:38] LABS: BILIRUBIN,URINE 1+ (NEGATIVE); CLARITY,URINE TURBID; COLOR,URINE BROWN; RBC,URINE TNTC /HPF
[2023-06-22 17:27] VITALS: BP 123/79
== END 2023-06-22 17:31 | disposition short-term general hospital (02) ==
LOC: EDUNIT# 14:51 → ER FS 14:52
DX: R54 Age-related physical debility (principal); C80.1 Malignant (primary) neoplasm, unspecified; Z79.01 Long term (current) use of anticoagulants
CPT/HCPCS: 36415; 80053; 81000; 85025; 87088